=== PATIENT | female | born 1995 | race Caucasian/White ===

== ENCOUNTER 2018-07-23 03:01 | Emergency (ER) | payer BC ==
[2018-07-23 03:08] VITALS: RESP 18; TEMP 98.4
[2018-07-23 03:36] LABS: Basophils % (A) 0 %; Eosinophils # (A) 0.1 k/uL (0-0.7); Eosinophils % (A) 1 %; Lymphocytes # (A) 1.5 k/uL (1.0-4.8); Lymphocytes % (A) 22 %; MCH 31.6 pg (25.0-35.0); MCHC 34.2 g/dL (31.0-37.0); MCV 92.6 fL (80.0-100.0); Mean Platelet Volume 7.8; Monocytes # (A) 0.3 k/uL (0-1.0); Monocytes % (A) 5 %; Neutrophils # (A) 4.7 k/uL (1.3-7.7); Neutrophils % (A) 69 %; Platelet Count 149 k/uL (150-450); RDW 12.5 % (11.5-15.5); WBC 6.9 k/uL (3.8-10.6)
[2018-07-23] MEDS ORDERED: MORPHINE SULFATE 4 MG/ML SYRINGE IVP STA (03:38)
[2018-07-23 03:45] LABS: ALT 25 U/L (9-52); AST 16 U/L (14-36); Albumin 4.4 g/dL (3.5-5.0); Alkaline Phosphatase 30 U/L (38-126); Anion Gap 8 mmol/L; Blood Urea Nitrogen 13 mg/dL (7-17); Calcium 9.1 mg/dL (8.4-10.2); Carbon Dioxide 24 mmol/L (22-30); Chloride 106 mmol/L (98-107); Glucose 106 mg/dL (74-99); Sodium 138 mmol/L (137-145); Total Bilirubin 0.4 mg/dL (0.2-1.3); Total Protein 7.5 g/dL (6.3-8.2)
[2018-07-23] MEDS ORDERED: ONDANSETRON 4 MG/2 ML VIAL IVP STA (03:50)
--- NOTE | 2018-07-23 03:50 | ED ---
General Adult HPI - General Chief complaint: Vaginal Bleeding Stated complaint: 11 weeks preg/issues Time Seen by Provider: 07/23/18 03:19 Source: patient Mode of arrival: ambulatory Limitations: no limitations - History of Present Illness Initial comments: Ani is a female currently 11 weeks based on dates and outpatient ultrasound which revealed a single intrauterine , patient presents the emergency department today for evaluation of vaginal bleeding concern for miscarriage. Patient reports she began having some dark spotting on Sunday, she contacted her OB about this but was told that there was nothing to be done aside from pelvic rest. Patient reports that she continued spotting throughout the day on Sunday and by Sunday evening she had bright red bleeding. She came to the ER for evaluation of bleeding and cramping. Patient reports that upon arrival to the emergency department she went to the restroom to provide a urine sample and she passed products of conception. - Related Data Allergies Allergy/AdvReac Type Severity Reaction Status Date / Time No Known Allergies Allergy Verified 07/23/18 03:08 Review of Systems ROS Statement: Those systems with pertinent positive or pertinent negative responses have been documented in the HPI. ROS Other: All systems not noted in ROS Statement are negative. Past Medical History Past Medical History: No Reported History History of Any Multi-Drug Resistant Organisms: None Reported Additional Past Surgical History / Comment(s): Breast surgery Past Psychological History: No Psychological Hx Reported Smoking Status: Never smoker Past Alcohol Use History: None Reported Past Drug Use History: None Reported General Exam - General Exam Comments Initial Comments: GENERAL: Tearful, appears uncomfortable HENT: Normocephalic, Atraumatic. EYES: The sclera were anicteric and conjunctiva were pink and moist. Extraocular movements were intact and pupils were equal round and reactive to light. Eyelids were unremarkable. PULMONARY: Unlabored respirations. Good breath sounds bilaterally. No audible rales rhonchi or wheezing was noted. CARDIOVASCULAR: There is a regular rate and rhythm without any murmurs gallops or rubs. ABDOMEN: Soft and nontender with normal bowel sounds. SKIN: Skin is clear with no lesions or rashes and otherwise unremarkable. : NEUROLOGIC: Patient is alert and oriented x3. Cranial nerves II through XII are grossly intact. Motor and sensory are also intact. Normal speech, volume and content. Symmetrical smile. MUSCULOSKELETAL: Normal extremities with adequate strength and full range of motion. No lower extremity swelling or edema. No calf tenderness. LYMPHATICS: No significant lymphadenopathy is noted PSYCHIATRIC: Normal psychiatric evaluation. Limitations: no limitations Limitations: no limitations Course Vital Signs 07/23/18 07/23/18 03:06 04:31 Temperature 98.4 F Pulse Rate 93 78 Respiratory 18 18 Rate Blood Pressure 122/78 96/54 O2 Sat by Pulse 99 98 Oximetry Medical Decision Making - Medical Decision Making The patient was seen and evaluated, labs and imaging were ordered History and physical exam are concerning for miscarriage, patient believes she passed products of conception in the restroom, she reports that she saw tissue Morphine and Zofran were ordered Pelvic exam revealed mild dark bleeding, placenta was removed from the cervical os, tissue was removed from vaginal canal Bleeding decreased after placental tissue was removed Patient's pain resolved after removal of tissue and morphine was administered At this time I suspect the patient has had a completed Return parameters including any development of worsening pain, foul odor, fever , profuse vaginal bleeding or lightheadedness were discussed with the patient. Patient was otherwise advised to contact her OB Dr. Eric Nichols at [facility] tomorrow to discuss findings and plan for repeat beta hCG. Patient was given a printed copy of her beta hCG which was noted only be 3473. Blood type was noted to be Rh+ therefore there is no indication for Bill All questions pertaining to care were answered to the best of my ability. The patient was discharged home in stable condition. - Lab Data Result diagrams: 07/23/18 03:25 07/23/18 03:25 Lab Results 07/23/18 07/23/18 07/23/18 Range/Units 03:25 03:25 03:25 WBC 6.9 (3.8-10.6) k/uL RBC 4.10 (3.80-5.40) m/uL Hgb 13.0 (11.4-16.0) gm/dL Hct 38.0 (34.0-46.0) % MCV 92.6 (80.0-100.0) fL MCH 31.6 (25.0-35.0) pg MCHC 34.2 (31.0-37.0) g/dL RDW 12.5 (11.5-15.5) % Plt Count 149 L (150-450) k/uL Neutrophils % 69 % Lymphocytes % 22 % Monocytes % 5 % Eosinophils % 1 % Basophils % 0 % Neutrophils # 4.7 (1.3-7.7) k/uL Lymphocytes # 1.5 (1.0-4.8) k/uL Monocytes # 0.3 (0-1.0) k/uL Eosinophils # 0.1 (0-0.7) k/uL Basophils # 0.0 (0-0.2) k/uL Sodium 138 (137-145) mmol/L Potassium 4.0 (3.5-5.1) mmol/L Chloride 106 (98-107) mmol/L Carbon Dioxide 24 (22-30) mmol/L Anion Gap 8 mmol/L BUN 13 (7-17) mg/dL Creatinine 0.61 (0.52-1.04) mg/dL Est GFR (CKD-EPI)AfAm >90 (>60 ml/min/1.73 sqM) Est GFR (CKD-EPI)NonAf >90 (>60 ml/min/1.73 sqM) Glucose 106 H (74-99) mg/dL Calcium 9.1 (8.4-10.2) mg/dL Total Bilirubin 0.4 (0.2-1.3) mg/dL AST 16 (14-36) U/L ALT 25 (9-52) U/L Alkaline Phosphatase 30 L (38-126) U/L Total Protein 7.5 (6.3-8.2) g/dL Albumin 4.4 (3.5-5.0) g/dL HCG, Quant 3743.0 mIU/mL Blood Type A Positive Blood Type Recheck [facility] ONLY Disposition Clinical Impression: Miscarriage Disposition: HOME SELF-CARE Condition: Good Instructions: Miscarriage (ED) Additional Instructions: Call your OB later today and notify him of your ED visit and findings, Repeat beta hCG Return to the emergency department if he develop any worsening vaginal bleeding , pain, lightheadedness, chest pain or palpitations or any new or concerning symptoms Is patient prescribed a controlled substance at d/c from ED?: No Referrals: None,Stated [Primary Care Provider] - 1-2 days Eric Hwathorne MD [REFERRING] - 1-2 days Time of Disposition: 04:22
[2018-07-23] MEDS ORDERED: ACET/COD 300 MG/30 MG STARTER PACK 6 TAB BTL PO STA (04:22)
[2018-07-23 04:31] VITALS: BP 96/54; PULSE 78
== END 2018-07-23 04:33 | disposition home or self-care (01) ==
LOC: EC 03:01
DX: O03.9 Complete or unspecified spontaneous abortion without complication (principal); Z3A.11 11 weeks gestation of pregnancy
CPT/HCPCS: 99284; 96374; 96375; 36415; 86900; 86901; 80053; 85025; 84702; J2270; J2405

== ENCOUNTER 2021-09-23 21:34 | Inpatient (IN) | payer BC ==
[2021-09-23] MEDS ORDERED: METHYLERGONOVINE 0.2 MG/ML 1 ML AMP IM PRN (23:32)
[2021-09-23] MEDS ORDERED: LIDOCAINE 0.5% (PF) 5 MG/ML (50 ML SDV) SQ PRN (23:32)
[2021-09-23] MEDS ORDERED: TERBUTALINE 1 MG/ML VIAL SQ PRN (23:32)
[2021-09-23] MEDS ORDERED: CARBOPROST TROMETHAMINE 250 MCG/ML 1 ML AMP IM PRN (23:32)
[2021-09-23] MEDS ORDERED: AMPICILLIN 2,000 MG in SODIUM CHLORIDE 0.9% 100 ML IVPB ONE (23:32)
[2021-09-23] MEDS ORDERED: OXYTOCIN 10 UNIT/ML 1 ML VIAL IM PRN (23:32)
[2021-09-23 23:42] LABS: Basophils % (A) 0 %; Eosinophils # (A) 0.1 k/uL (0-0.7); Eosinophils % (A) 1 %; HCT 32.3 % (34.0-46.0); HGB 11.5 gm/dL (11.4-16.0); Hyperchromasia Slight; Lymphocytes # (A) 1.6 k/uL (1.0-4.8); Lymphocytes % (A) 17 %; MCH 32.2 pg (25.0-35.0); MCHC 35.5 g/dL (31.0-37.0); MCV 90.6 fL (80.0-100.0); Mean Platelet Volume 9.2; Monocytes # (A) 0.5 k/uL (0-1.0); Monocytes % (A) 5 %; Neutrophils # (A) 7.2 k/uL (1.3-7.7); Neutrophils % (A) 76 %; Platelet Count 268 k/uL (150-450); Poikilocytosis Slight; RBC 3.56 m/uL (3.80-5.40); RDW 12.9 % (11.5-15.5); WBC 9.5 k/uL (3.8-10.6)
[2021-09-23] MEDS ORDERED: LACTATED RINGERS 1,000 ML IV SCH (23:45)
--- NOTE | 2021-09-24 00:07 | P.HPOB ---
History of Present Illness H&P Date: 09/23/21 Chief Complaint: Contractions. This patient is a pleasant 25-year-old 3 para 1 female estimated date of confinement 10/03/2021 estimated gestational age 38-4/7 weeks who presents to labor and delivery with complaints of contractions. Patient was 3 cm dilated and office and this evening was initially 3 simmers dilated and however recheck shows a be 4-5 cm active labor. care is per Dr. Pack. She did have an ultrasound done at 35 weeks which showed bilateral hydroceles. otherwise appears uncomplicated. She does have a history of a positive group B strep with a previous but negative this . Review of Systems Genitourinary: Reports Menstruation: Reports amenorrhea Past Medical History Past Medical History: No Reported History Additional Past Medical History / Comment(s): Previous term vaginal delivery. History of Any Multi-Drug Resistant Organisms: None Reported Additional Past Surgical History / Comment(s): Bilateral breast augmentation. Past Anesthesia/Blood Transfusion Reactions: No Reported Reaction Past Psychological History: No Psychological Hx Reported Smoking Status: Never smoker Past Alcohol Use History: None Reported Past Drug Use History: None Reported Medications and Allergies Home Medications Medication Instructions Recorded Confirmed Type Pnv No.95/Ferrous Fum/Folic AC 1 tab PO DAILY 09/23/21 09/23/21 History [ Multivitamin Tablet] Allergies Allergy/AdvReac Type Severity Reaction Status Date / Time No Known Allergies Allergy Verified 09/23/21 21:58 Exam Intake and Output 09/23/21 09/23/21 09/24/21 14:59 22:59 06:59 Other: Weight 68.946 kg - OBG Physical Exam Abdomen: bowel sounds normal, no diffuse tenderness, no bruit present, no guarding noted, no hepatomegaly, no splenomegaly, no mass Vulva: both: normal Vagina: normal moisture, no discharge Cervix: no lesion (Cervix is 4-580% effaced -1 station), no discharge Results blood work shows she is A positive, rubella nonimmune, hepatitis B negative, RPR is nonreactive, toxoplasmosis was negative 2. Quad screen was negative. Glucola was 114. Group B strep was negative, but does have a history of positive previous . Most recent ultrasound put estimated weight at 6 lbs. 10 oz. Result Diagrams: 09/23/21 23:30 Abnormal Lab Results - Last 24 Hours (Table) 09/23/21 Range/Units 23:30 RBC 3.56 L (3.80-5.40) m/uL Hct 32.3 L (34.0-46.0) % Assessment and Plan Assessment: This is a pleasant 25-year-old 3 para 1 female 38-5/7 weeks gestation admitted to labor and delivery and active labor. Patient is a negative group B strep with history of a positive with a previous therefore we will prophylactically treat with IV antibiotics. Incidentally patient was also known to have bilateral hydroceles of the fetus. Corrections Caseworker were alerted to this finding. Anticipate vaginal delivery. (1) 38 weeks gestation of Current Visit: Yes Status: Acute Code(s): Z3A.38 - 38 WEEKS GESTATION OF SNOMED Code(s): 48839595 (2) Normal labor Current Visit: Yes Status: Acute Code(s): O80 - ENCOUNTER FOR FULL-TERM UNCOMPLICATED DELIVERY; Z37.9 - OUTCOME OF DELIVERY, UNSPECIFIED SNOMED Code(s): 25108219
[2021-09-24] MEDS ORDERED: BUTORPHANOL 1 MG/ML 1 ML VIAL IV PRN (00:49)
--- NOTE | 2021-09-24 02:45 | P.PROBDLV ---
Vaginal Delivery Note - . Vaginal Delivery Note: Normal spontaneous vaginal delivery viable male infant Apgars 9 and 9 delivery time is 0220 hours. Please see dictated H&P for intimate details of this patient's admission. In brief summary this is a pleasant 25-year-old 3 para 1 female 38-5/7 weeks who presents to labor and delivery with complaints of contractions found to be in active labor. She is artificial rupture membranes for clear fluid at 5 cm. Patient's labor progresses on its own and she does get 1 dose of Stadol for pain control. Patient gets to complete pushes the head to the perineum. Posterior perineum is supported we have controlled delivery of 's head over the intact perineum. is right occiput anterior presentation. Mouth and nares are bulb suctioned. There is no evidence of a nuchal cord. With gentle downward traction we then have deliver the anterior and posterior shoulder and rest this infant's body. This is a vigorous viable male Apgars 9 and 9 delivery time is 0220 hours. After delivery of the the infant is laid on the mother's abdomen. After the cord is done pulsating, the cords doubly clamped and cut appears to be trivascular. Placenta is then spontaneously delivered intact. Estimated blood loss is approximately 100 mL. Inspection of the perineum shows a second-degree midline laceration. This is easily removed reapproximated with a 3-0 Vicryl usual fashion. Excellent reapproximation is noted. There is only superficial periurethral lacerations. No repairs required of these. All counts are correct 3. There are no complications. Infant and mother are stable in delivery room.
[2021-09-24] MEDS ORDERED: diphenhydrAMINE 50 MG/ML 1 ML VIAL IVP PRN (02:46)
[2021-09-24] MEDS ORDERED: diphenhydrAMINE 25 MG CAP PO PRN (02:46)
[2021-09-24] MEDS ORDERED: SENNOSIDES-DOCUSATE SODIUM 1 EACH TAB PO PRN (02:46)
[2021-09-24] MEDS ORDERED: LANOLIN CREAM 5 GM TUBE TOPICAL PRN (02:46)
[2021-09-24] MEDS ORDERED: HYDROCORTISONE 2.5% RECTAL CREAM 30 GM TUBE RECTAL PRN (02:46)
[2021-09-24] MEDS ORDERED: ACETAMINOPHEN TAB 325 MG TAB PO PRN (02:46)
[2021-09-24] MEDS ORDERED: bisacodyL 10 MG SUPP RECTAL PRN (02:46)
[2021-09-24] MEDS ORDERED: ZOLPIDEM 5 MG TAB PO PRN (02:46)
[2021-09-24] MEDS ORDERED: BENZOCAINE/MENTHOL SPRAY 1 GM/SPRAY AEROSOL TOPICAL PRN (02:46)
[2021-09-24] MEDS ORDERED: MEASLES-MUMPS-RUBELLA VACC/PF 12,500 UNIT/0.5 ML VIAL SQ ONE (02:46)
[2021-09-24] MEDS ORDERED: SIMETHICONE 80 MG CHEWABLE PO PRN (02:46)
[2021-09-24] MEDS ORDERED: OXYTOCIN 30 UNITS/500 ML NS 30 UNIT in SALINE 1 500ML.BAG IV SCH (03:00)
[2021-09-24] MEDS ORDERED: AMPICILLIN 1,000 MG in SODIUM CHLORIDE 0.9% 50 ML IVPB SCH (04:00)
[2021-09-24] MEDS: IBUPROFEN 600 MG TAB PO PRN ×2 (11:32→22:08)
[2021-09-25 03:01] VITALS: RESP 16
--- NOTE | 2021-09-25 07:41 | P.PNOBGVD ---
Subjective - Subjective Patient reports: Reports appetite normal, Reports voiding normally, Reports pain well controlled, Reports ambulating normally : doing well Objective - Latest Vital Signs Latest vital signs: Vital Signs Temp Pulse Resp BP Pulse Ox 09/25/21 00:00 98.3 F 80 16 101/65 09/24/21 20:00 98.5 F 83 16 101/65 09/24/21 16:00 98.3 F 80 18 100/64 97 09/24/21 12:00 98.4 F 82 18 106/67 97 09/24/21 08:00 98.3 F 81 18 97/59 97 Intake and Output 09/24/21 09/25/21 09/25/21 22:59 06:59 14:59 Other: # Voids 2 2 - Exam Lungs: bilateral: normal Chest: Normal S1, Normal S2 Extremities: Present: normal Abdomen: Present: normal appearance, soft Uterus: Present: normal, firm Assessment and Plan Assessment: day #1. Patient is resting without new complaints. She wishes to go home. Vital signs are stable and she is afebrile. Uterus is firm nontender and she is having normal lochia. She states that she does feel much better than she did after her first delivery already. My impression is that this is a normal course. Plan is to continue routine care discharge home later today (1) 38 weeks gestation of Current Visit: Yes Status: Acute Code(s): Z3A.38 - 38 WEEKS GESTATION OF SNOMED Code(s): 96502525 (2) Normal labor Current Visit: Yes Status: Acute Code(s): O80 - ENCOUNTER FOR FULL-TERM UNCOMPLICATED DELIVERY; Z37.9 - OUTCOME OF DELIVERY, UNSPECIFIED SNOMED Code(s): 43755039
--- NOTE | 2021-09-25 07:46 | P.DS ---
Providers Date of admission: 09/23/21 23:00 Expected date of discharge: 09/25/21 Attending physician: Mildred Pack Primary care physician: Stated None - Discharge Diagnosis(es) (1) 38 weeks gestation of Current Visit: Yes Status: Acute (2) Normal labor Current Visit: Yes Status: Acute Hospital Course: Please see dictated H&P for intimate details of this patient's admission. Brief summary this is a pleasant 25-year-old 3 para 1 female estimated gestational age 38-5/7 weeks who presents to labor and delivery with complaints of regular painful contractions found to be in active labor. Patient quickly goes on have a vaginal delivery viable male infant. Please see dictated delivery note. day #1 patient's felt be stable for discharge home follow up with Dr. Pack in 6 weeks. Procedures: Normal spontaneous vaginal delivery Patient Condition at Discharge: Good Plan - Discharge Summary New Discharge Prescriptions: New Ibuprofen [Motrin] 600 mg PO Q6HR PRN #30 tab PRN Reason: Pain No Action Pnv No.95/Ferrous Fum/Folic AC [ Multivitamin Tablet] 1 tab PO DAILY Discharge Medication List Pnv No.95/Ferrous Fum/Folic AC [ Multivitamin Tablet] 1 tab PO DAILY 09/23/21 [History] Ibuprofen [Motrin] 600 mg PO Q6HR PRN #30 tab 09/25/21 [Rx] Follow up Appointment(s)/Referral(s): Mildred Pack DO [Doctor of Osteopathic Medicine] - 1 Week Patient Instructions/Handouts: Vaginal Delivery (DC) Activity/Diet/Wound Care/Special Instructions: No intercourse or anything per vagina for 6 weeks. Please call if any fever, chills, excessive vaginal bleeding, and/or abdominal pain Discharge Disposition: HOME SELF-CARE
[2021-09-25] MEDS: IBUPROFEN 600 MG TAB PO PRN (08:30)
[2021-09-25 08:38] VITALS: BP 105/65; PULSE 74; TEMP 98.6
--- NOTE | 2021-09-26 06:53 | P.MSEPDOC ---
Presenting Problems - Arrival Data Date of Arrival on Unit: 09/23/21 Time of Arrival on Unit: 21:40 Mode of Transport: Ambulatory - Complaint OB-Reason for Admission/Chief Complaint: Possible Onset of Labor Comment: Contractions every three minutes since 6pm. Patient states they are mild but. similiar to her first labor. Medical History - Information : 3 Para: 1 Term: 0 : 0 Abortions: Spontaneous or Elective: 1 Number of Living Children: 1 - Gestational Age Gestational Age by ERROL (wks/days): 38 Weeks and 5 Days Review of Systems - Review of Systems Constitutional: No problems Breast: No problems ENT: No problems Cardiovascular: No problems Respiratory: No problems Gastrointestinal: No problems Genitourinary: No problems Musculoskeletal: No problems Neurological: No problems Skin: No problems Vital Signs - Temperature Temperature: 98.6 F Temperature Source: Oral - Pulse Right Brachial Pulse Rate: 74 Pulse Assessment Method: Automatic Cuff - Respirations Respiratory Rate: 16 Oxygen Delivery Method: Room Air - Blood Pressure Right Arm Blood Pressure: 105/65 Blood Pressure Mean: 78 Blood Pressure Source: Automatic Cuff Medical Screen Scoring - Cervical Exam Dilation (cm): 3 Effacement (%): 60 Station: -2 Membranes: Intact - Uterine Contractions Frequency From (mins): 1 Frequency To (mins): 3 Duration From (seconds): 40 Duration To (seconds): 60 Intensity: Mild Resting: Soft to palpation - Assessment - Baby A Baseline FHR: 135 Heart Rate - NICHD Category: Category I (Normal) NST: Reactive Physician Notification - Physician Notified Physician Notified Date: 09/24/21 Physician Notified Time: 23:17 Physician: Anil Joiner New Order Received: Yes - Notification Comment Comment: RN reported that patient had been having contractions every 3 minutes since. 6pm. Reactive NST, vital signs WNL, cervical exam was 3cm and 4.5cm after one hour. recheck. Dr. Joiner would like patient admitted to the floor ,an IV started, and states. he will be in shortly to break water. Patient updated on plan of care and in agreement. Patient to be moved to [address]. Maternal Triage Index - Maternal Triage Index Presenting for scheduled procedure w/no complaint: No - Stat/Priority 1 Stat Priority 1: No - Urgent/Priority 2 Urgent Priority 2: No - Prompt/Priority 3 Prompt Priority 3: Yes Criteria Met for Priority 3: Signs of active labor >34 weeks Disposition - Disposition OB Disposition: Admit Transferred to:: [address] Discharge Date: 09/25/21 Discharge Time: 10:11 I agree with the RN Medical Screening Exam: Yes Case reviewed; plan agreed upon as documented in EMR&OBIX.: Yes Diagnosis: ENCOUNTER FOR FULL-TERM UNCOMPLICATED DELIVERY
== END 2021-09-25 10:12 | disposition home or self-care (01) | DRG 807 ==
LOC: FBPOP 21:34 → 4FBP 23:00
PROVIDERS: ADMIT Obstetrics & Gynecology; ATTEND Obstetrics & Gynecology
PROC: 10E0XZZ Delivery of Products of Conception, External Approach (ICD-10-PCS; principal; 2021-09-24)
PROC: 0KQM0ZZ Repair Perineum Muscle, Open Approach (ICD-10-PCS; 2021-09-24)
PROC: 0UQMXZZ Repair Vulva, External Approach (ICD-10-PCS; 2021-09-24)
PROC: 10907ZC Drainage of Amniotic Fluid, Therapeutic from Products of Conception, Via Natural or Artificial Opening (ICD-10-PCS; 2021-09-24)
DX: O35.8XX0 Maternal care for other (suspected) fetal abnormality and damage, not applicable or unspecified (principal); Z37.0 Single live birth; O70.1 Second degree perineal laceration during delivery; O71.82 Other specified trauma to perineum and vulva; Z3A.38 38 weeks gestation of pregnancy; Z87.59 Personal history of other complications of pregnancy, childbirth and the puerperium
CPT/HCPCS: 59025; 85025; 86850; 86900; 86901; 90707; 99213

== ENCOUNTER → 2023-04-19 | Outpatient (CLI) | payer BC ==
--- NOTE | 2023-04-19 11:27 | USB ---
Reason for Exam: Clinical finding. Technique: Method: Targeted. Patient Position: Supine. Findings: The upper section of the breast of the left breast was scanned. Targeted ultrasound superior aspect of the left breast at the patient's palpable site. Scanning was performed from the 10:00 to 2:00 position including the subareolar region. Underlying breast implant is noted. Very dense breast tissue. At the 12:00 palpable site, there is focal fibrocystic change measuring 3.6 x 2.5 x 1.1 cm. No suspicious solid or cystic lesion is otherwise seen. A precautionary 6 month follow-up can reassess. Overall Assessment: Probably benign, BI-RAD 3 Management: Diagnostic Breast Ultrasound of the left breast in 6 months. A clinical breast exam by your physician is recommended on an annual basis and results should be correlated with mammographic findings. This exam should not preclude additional follow-up of suspicious palpable abnormalities. Results were given to the patient verbally at the time of exam. Electronically signed and approved by: Nica Schulte M.D. Radiologist
== END | disposition home or self-care (01) ==
LOC: RADUSWWP 10:27
PROVIDERS: ATTEND Surgery
DX: N63.20 Unspecified lump in the left breast, unspecified quadrant (principal)

== ENCOUNTER → 2023-04-19 | Outpatient (CLI) | payer BC ==
--- NOTE | 2023-04-19 10:25 | P.GSHP ---
History of Present Illness H&P Date: 04/19/23 Chief Complaint: Lump left breast Ani is a 27 -year-old female seen in consultation for Dr. Pack regarding a nodule in her left breast. She states she noted at approximately 2 months ago. It is located in the upper outer quadrant area. It is about 3 cm in size, it has not changed in size. It is painful if touched. She has not had anything like this in the past. She is not complaining of any nipple discharge or skin changes. She does not believe that it fluctuates with her menstrual cycle. She is not complaining of any trauma or infection in the breast. Breast fed both of her children, she stopped approximately 6 months ago but occasionally will get milky discharge if her breast are manipulated. She underwent bilateral textured silicone implants above the muscle in 2017. She has not had any other surgery on her breast. Caffeine: 1-2 cups/day nicotine: none chocolate: occasional BCP: used them for 10 years in the past, stopped 2018 Family History: maternal grandmother: breast cancer at 30 paternal aunt: breast cancer 50 paternal grandmother: breast cancer at 72, anal cancer paternal grandfather: colon cancer, lung cancer Hormonal History: menarche: 12 M1, age at first : 23, breast fed: yes periods regular, on her period now hormones:none Surgical History: breast augmentation 2017, implants, above the muscle, silicone gel Medical History: none Social History: nicotine: none alcohol: monthly a drink drugs:none - Constitutional Constitutional: Denies chills, Denies fever - EENT Eyes: denies blurred vision, denies pain Ears: deny: decreased hearing, tinnitus Ears, nose, mouth and throat: Denies headache, Denies sore throat - Breasts Breasts: bilateral: as per HPI - Cardiovascular Cardiovascular: Denies chest pain, Denies shortness of breath - Respiratory Respiratory: Denies cough, Denies 7 - Gastrointestinal Gastrointestinal: Denies abdominal pain, Denies diarrhea, Denies nausea, Denies vomiting - Genitourinary (Female) Genitourinary: Denies dysuria, Denies hematuria - Menstruation Menstruation: Reports period normal - Musculoskeletal Musculoskeletal: Denies myalgias - Integumentary Integumentary: Denies pruritus, Denies rash - Neurological Neurological: Denies numbness, Denies weakness - Psychiatric Psychiatric: Denies anxiety, Denies depression - Endocrine Endocrine: Denies fatigue, Denies weight change - Hematologic/Lymphatic Comment: none - Allergic/Immunologic Allergic/Immunologic: Reports as per HPI Past Medical History Past Medical History: No Reported History Additional Past Medical History / Comment(s): Previous term vaginal delivery. History of Any Multi-Drug Resistant Organisms: None Reported Additional Past Surgical History / Comment(s): Bilateral breast augmentation. Past Anesthesia/Blood Transfusion Reactions: No Reported Reaction Past Psychological History: No Psychological Hx Reported Smoking Status: Never smoker Past Alcohol Use History: None Reported Past Drug Use History: None Reported - Past Family History Mother Family Medical History: No Reported History Medications and Allergies Home Medications Medication Instructions Recorded Confirmed Type Pnv No.95/Ferrous Fum/Folic AC 1 tab PO DAILY 09/23/21 09/23/21 History [ Multivitamin Tablet] Ibuprofen [Motrin] 600 mg PO Q6HR PRN #30 tab 09/25/21 Rx Allergies Allergy/AdvReac Type Severity Reaction Status Date / Time No Known Allergies Allergy Verified 09/23/21 21:58 Surgical - Exam - General no distress - Eyes normal ocular movement - ENT no hearing loss - Neck trachea midline - Respiratory normal respiratory effort - Cardiovascular Rhythm: regular Heart Sounds: normal: S1, S2 - Abdomen Abdomen: soft - Integumentary normal turgor - Neurologic no disoriented, no combative - Musculoskeletal normal gait, normal posture - Psychiatric oriented to time, oriented to person, oriented to place, speech is normal, memory intact Breast Exam: BRA: 32C inspection: Bilateral breast implants Palpation: right breasts: Multiple positional exam no dominant masses or nodules of concern implant in place, dominant masses or nodules of concern Right axilla: No adenopathy of concern Left breast: Multiple positional exam in the upper outer quadrant area over the implant there is approximately a 2 cm area of nodularity most likely consistent with a cyst that appears to be smooth-walled Her dominant masses or nodules of concern, implant is in place Left axilla: No adenopathy of concern Assessment and Plan Assessment: Impression: Nodule left breast Fibrocystic breast changes Bilateral prepectoral textured silicone implants placed in 2017 Strong family history of breast cancer. We will get a Aleyda risk evaluation when patient has mammograms done we have discussed genetic testing Plan: Ultrasound left breast area of nodularity Close surveillance secondary to implants in place Bilateral mammogram Bilateral breast ultrasound CC: Dr. Pack
== END ==
LOC: WWCWWP 10:04
PROVIDERS: ATTEND Surgery
DX: N60.12 Diffuse cystic mastopathy of left breast (principal); Z80.3 Family history of malignant neoplasm of breast; Z80.1 Family history of malignant neoplasm of trachea, bronchus and lung

== ENCOUNTER → 2023-10-19 | Outpatient (CLI) | payer BC ==
--- NOTE | 2023-10-19 16:19 | USB ---
Reason for Exam: Follow-up at short interval from prior study. Technique: Method: Whole Breast Handheld. Findings: The whole breast of both breasts, the axilla of both breasts and the retroareolar of both breasts were scanned. A complete US of all four quadrants of the the bilateral breasts, axilla, and retro-areolar region were reviewed. Underlying bilateral breast implants. Dense tissue is present throughout on both sides. On the left, 12:00 position, redemonstrated clumped up tissue with multiple cysts. The region measures 3.7 x 3.5 x 1.2 cm. This is in comparison to 3.6 x 2.5 x 1.1 cm 6 months ago. Overall not significantly changed. An annual follow-up can be performed given focality. Overall Assessment: Probably benign, BI-RAD 3 Management: Diagnostic Breast Ultrasound of the left breast in 1 year. Focal clumped up tissue with prominent cystic change at the 12:00 position left breast remains relatively unchanged for 6 months. Probable focal area of proliferative fibrocystic change. A breast hamartoma is also a consideration. Consider ultrasound follow-up in 12 months. If any enlargement is noted, the area can be rescanned sooner. Surgical excision can be considered if symptomatic. Results were given to the patient verbally at the time of exam. Electronically signed and approved by: Nica Schulte M.D. Radiologist
--- NOTE | 2023-11-01 11:11 | MM ---
Reason for Exam: Follow-up at short interval from prior study. Patient History: Menarche at age 12. First Full-Term at age 23. Patient has history of breast feeding. 11/2016, Bilateral Implants. Maternal grandmother had breast cancer, age 30. Paternal grandmother had breast cancer at or over age 50. Paternal aunt had breast cancer at or over age 50. Tissue Density: The breast tissue is extremely dense which could obscure a lesion on mammography. Findings: Bilateral breast prostheses are present. There is some fullness in the upper outer anterior left breast anterior to the breast prosthesis. This may correlate with the ultrasound findings. There are some punctate calcifications posterior to the right nipple 1.6 cm from the nipple. Magnification views were obtained. A suspicious cluster of calcifications on magnification are not identified. On the medial lateral view couple of punctate calcifications are identified with some additional regional punctate calcifications. No suspicious group of calcifications present. Short-term follow-up for evaluation of stability is recommended. There are scattered benign punctate calcifications within the left breast. Patient is currently scheduled for a biopsy of the left breast ultrasound findings. Overall Assessment: Probably benign, BI-RAD 3 Management: Diagnostic Mammogram of the right breast in 6 months. A negative mammogram report should not preclude additional follow up of suspicious palpable abnormalities. Patient should continue monthly self breast exam. A clinical breast exam by your physician is recommended on an annual basis and results should be correlated with mammographic findings. Electronically signed and approved by: Bhupinder Orellana D.O. Radiologis
== END | disposition home or self-care (01) ==
LOC: RADMAMWWP 14:31
PROVIDERS: ATTEND Surgery
DX: R92.343 Mammographic extreme density, bilateral breasts (principal); R92.1 Mammographic calcification found on diagnostic imaging of breast; N60.01 Solitary cyst of right breast; N60.02 Solitary cyst of left breast; Z80.3 Family history of malignant neoplasm of breast; Z98.82 Breast implant status
CPT/HCPCS: 77062; 77066

== ENCOUNTER → 2023-11-01 | Outpatient (CLI) | payer BC ==
[2023-11-01 09:05] VITALS: BP 96/62; PULSE 70; RESP 18; TEMP 98.4
--- NOTE | 2023-11-01 09:45 | P.PN ---
Subjective Progress Note Date: 11/01/23 History of Present Illness H&P Date: 04/19/23 Chief Complaint: Lump left breast Ani is a 27 -year-old female seen in consultation for Dr. Pack on 04-19-23 regarding a nodule in her left breast. She had noted it approximately 2 months prior. It was located in the upper outer quadrant area. It was about 3 cm in size, it had not changed in size. It was painful if touched. She had not had anything like this in the past. She was not complaining of any nipple discharge or skin changes. She did believe that it fluctuated with her menstrual cycle. She was not complaining of any trauma or infection in the breast. Breast fed both of her children, she stopped approximately 6 months prior but occasionally would get milky discharge if her breast were manipulated. She underwent bilateral textured silicone implants above the muscle in 2016. She had not had any other surgery on her breast. The patient had an ultrasound performed on 770 223 and no discrete masses were noted. Repeat ultrasound in 6 months was recommended. Repeat ultrasound bilateral of the breast was performed on 1220 223. This revealed in the left breast clump of tissue with multiple cysts. The lesion measured 2.7 x 3.5 cm. This was not felt to be significantly changed. No lesions of concern were identified in the right breast. This was considered BIRADS 3. Diagnostic breast ultrasound of the left breast in 1 year was recommended. The patient states that the area of concern in the left breast may have increased slightly in size. It is tender to palpation. Ultrasound done on 10-19-23 noted in the left breast probable focal area of proliferative fibrocystic change. Hematoma was also considered. This was focal clump of tissue with prominent cystic change at 12:00. Caffeine: 1-2 cups/day nicotine: none chocolate: occasional BCP: used them for 10 years in the past, stopped 2018 Family History: maternal grandmother: breast cancer at 30 paternal aunt: breast cancer 50 paternal grandmother: breast cancer at 72, anal cancer paternal grandfather: colon cancer, lung cancer Hormonal History: menarche: 12 M1, age at first : 23, breast fed: yes periods regular, on her period now hormones:none Surgical History: breast augmentation 2017, implants, above the muscle, silicone gel Medical History: none Social History: nicotine: none alcohol: monthly a drink drugs:none - Constitutional Constitutional: Denies chills, Denies fever - EENT Eyes: denies blurred vision, denies pain Ears: deny: decreased hearing, tinnitus Ears, nose, mouth and throat: Denies headache, Denies sore throat - Breasts Breasts: bilateral: as per HPI - Cardiovascular Cardiovascular: Denies chest pain, Denies shortness of breath - Respiratory Respiratory: Denies cough - Gastrointestinal Gastrointestinal: Denies abdominal pain, Denies diarrhea, Denies nausea, Denies vomiting - Genitourinary (Female) Genitourinary: Denies dysuria, Denies hematuria - Menstruation Menstruation: Reports period normal - Musculoskeletal Musculoskeletal: Denies myalgias - Integumentary Integumentary: Denies pruritus, Denies rash - Neurological Neurological: Denies numbness, Denies weakness - Psychiatric Psychiatric: Denies anxiety, Denies depression - Endocrine Endocrine: Denies fatigue, Denies weight change - Hematologic/Lymphatic Comment: none - Allergic/Immunologic Allergic/Immunologic: Reports as per HPI Past Medical History Past Medical History: No Reported History Additional Past Medical History / Comment(s): Previous term vaginal delivery. History of Any Multi-Drug Resistant Organisms: None Reported Additional Past Surgical History / Comment(s): Bilateral breast augmentation. Past Anesthesia/Blood Transfusion Reactions: No Reported Reaction Past Psychological History: No Psychological Hx Reported Smoking Status: Never smoker Past Alcohol Use History: None Reported Past Drug Use History: None Reported - Past Family History Mother Family Medical History: No Reported History Medications and Allergies Home Medications Medication Instructions Recorded Confirmed Type Pnv No.95/Ferrous Fum/Folic AC 1 tab PO DAILY 09/23/21 09/23/21 History [ Multivitamin Tablet] Ibuprofen [Motrin] 600 mg PO Q6HR PRN #30 tab 09/25/21 Rx Allergies Allergy/AdvReac Type Severity Reaction Status Date / Time No Known Allergies Allergy Verified 09/23/21 21:58 Objective - Vital Signs Vital signs: Vital Signs Temp 98.4 F 11/01/23 08:52 Pulse 70 11/01/23 08:52 Resp 18 11/01/23 08:52 BP 96/62 11/01/23 08:52 Pulse Ox 99 11/01/23 08:52 FiO2 Intake & Output 10/31/23 11/01/23 11/01/23 18:59 06:59 18:59 Weight 55.792 kg - Constitutional General appearance: Present: cooperative - EENT Eyes: Present: EOMI ENT: Present: hearing grossly normal - Neck Neck: Present: normal ROM - Respiratory Respiratory: bilateral: CTA - Cardiovascular Heart sounds: normal: S1, S2 - Gastrointestinal General gastrointestinal: Present: soft - Integumentary Integumentary: Present: normal turgor - Musculoskeletal Musculoskeletal: Present: gait normal - Psychiatric Psychiatric: Present: A&O x's 3, appropriate affect, intact judgment & insight - Additional findings Additional findings: Breast Exam: BRA: 32C inspection: Bilateral breast implants Palpation: right breasts: Multi positional exam no dominant masses or nodules of concern implant in place, no dominant masses or nodules of concern Right axilla: No adenopathy of concern Left breast: Multiple positional exam in the upper outer quadrant area over the implant there is approximately a 2 cm area of nodularity which seems to be more prominent than on her last exam. This is in the 12 o'clock position. No other dominant masses or nodules of concern Left axilla: No adenopathy of concern Assessment and Plan Assessment: Impression: Nodule left breast Fibrocystic breast changes Bilateral prepectoral textured silicone implants placed in 2017 Strong family history of breast cancer. We will get a Aleyda risk evaluation when patient has mammograms done we have discussed genetic testing Plan: Ultrasound core biopsy of the left breast area of nodularity/ reviewed with DR. Phillips and cayetano this vould be done Close surveillance secondary to implants in place Most likely recommend excision in the operating room of the area of nodularity in the left breast as this is symptomatic, it has gotten larger, but we will await biopsy results genetic testing follow up after ultrasound core biopsy left breast and genetic testing mammogram form 10-19-[address] Phillips, on preliminary exam no distinct lesion awaiting final report CC: Dr. Pack
--- NOTE | 2023-11-01 12:26 | MM ---
Reason for Exam: Additional evaluation requested from abnormal screening. Last screening mammogram was performed less than 1 month ago. Patient History: Menarche at age 12. First Full-Term at age 23. Patient has history of breast feeding. 11/2016, Bilateral Implants. Maternal grandmother had breast cancer, age 30. Paternal grandmother had breast cancer at or over age 50. Paternal aunt had breast cancer at or over age 50. Prior Study Comparison: 04/19/2023 Left US breast limited LT, [facility]. 10/19/2023 Bilateral US breast BILAT, [facility]. Tissue Density: Right: The breast tissue is extremely dense which could obscure a lesion on mammography. Findings: Analyzed By CAD. This exam is performed as follow-up diagnostic imaging of the 10/19/2023 diagnostic images. Additional magnification views and mediolateral compression right breast dictation is included in the previous diagnostic dictation. Patient is currently scheduled for left breast biopsy. Overall Assessment: Probably benign, BI-RAD 3 Management: Diagnostic Mammogram of the right breast in 6 months. A negative mammogram report should not preclude additional follow up of suspicious palpable abnormalities. Patient should continue monthly self breast exam. A clinical breast exam by your physician is recommended on an annual basis and results should be correlated with mammographic findings. Electronically signed and approved by: Bhupinder Orellana D.O. Radiologis
== END ==
LOC: WWCWWP 08:42
PROVIDERS: ATTEND Surgery
DX: N60.12 Diffuse cystic mastopathy of left breast (principal); N63.20 Unspecified lump in the left breast, unspecified quadrant; Z80.3 Family history of malignant neoplasm of breast; Z98.82 Breast implant status

== ENCOUNTER → 2023-11-16 | Day surgery (SDC) | payer BC ==
--- NOTE | 2023-11-21 12:38 | MM ---
Reason for Exam: Post Procedure Mammogram. Last screening mammogram was performed less than 1 month ago. Patient History: Menarche at age 12. First Full-Term at age 23. Patient has history of breast feeding. 11/2016, Bilateral Implants. Maternal grandmother had breast cancer, age 30. Paternal grandmother had breast cancer at or over age 50. Paternal aunt had breast cancer at or over age 50. Prior Study Comparison: 10/19/2023 Bilateral MG 3D diag mammo imp w/cad [place], [facility]. 11/01/2023 Right MG 3D follow up no charge RT, [facility]. Tissue Density: Left: The breast tissue is extremely dense which could obscure a lesion on mammography. Pathology Description: Location: 12 o'clock. Marker Left Behind. Needle Type: Mammotome Cores: 9 Gauge: 13 The procedure of ultrasound guided core biopsy was explained to the patient. Benefits, alternatives, and risks were discussed. An informed consent was then obtained. The focal oval mixed area at the 12:00 position measuring up to 3.7 cm is identified and targeted for biopsy. Underlying breast implant is noted as well. The patient was placed in supine positioning for imaging and for the procedure. The overlying skin was prepped and draped in usual sterile fashion. Lidocaine was used as anesthetic into the skin and subcutaneous tissue up to area of concern in the left breast. Under ultrasound guidance, a 13-gauge vacuum-assisted mammotome Elite biopsy gun device was used to obtain 7 core samples. 2 of the samples were taken at the margin of the lesion in the event that any capsule is present. Following this, a Hydromark butterfly clip was left in lesion. The patient tolerated the procedure well without any immediate complication. The patient was kept in the radiology department for short stay after the procedure and then discharged home in stable condition. Postprocedure mammogram: The patient was transferred to mammography for physician ordered post procedure mammogram for clip placement verification. Postprocedure mammogram shows clip at the area of density. Underlying breast implant remains intact. IMPRESSION: Successful, uncomplicated ultrasound guided core biopsy of a palpable area 12:00 left breast. A benign etiology is suspected. Consider etiologies such as hamartoma and PASH. A couple samples were taken at the lesion margin in the event that a capsule is present. Full pathology results to follow. Pathology Results: Result: Benign, Fibrocystic change. LEFT BREAST, 12:00, ULTRASOUND GUIDED CORE BIOPSY: Proliferative fibrocystic change with fragmented benign ductal cyst, apocrine metaplasia, usual ductal hyperplasia and acute and chronic mastitis. Overall Assessment: Benign Assessment: MG diagnostic mammo LT wo CAD. - Left: Benign, BI-RAD 2. Management: Diagnostic Breast Ultrasound of the left breast in 6 months. If any enlargement is noted or if symptomatic, given focality, excision can be considered. Otherwise, screening mammogram at 38 years. Electronically signed and approved by: Nica Schulte M.D. Radiologist
== END ==
LOC: RADUSWWP 10:16
PROVIDERS: ATTEND Surgery
DX: N61.0 Mastitis without abscess (principal); N60.82 Other benign mammary dysplasias of left breast; R92.8 Other abnormal and inconclusive findings on diagnostic imaging of breast; Z80.3 Family history of malignant neoplasm of breast
CPT/HCPCS: 88305; 77065; 19083; A4648

== ENCOUNTER → 2023-11-23 | Outpatient (CLI) | payer BC ==
[2023-11-23 11:47] VITALS: BP 113/68; PULSE 68; RESP 17; TEMP 97.9
--- NOTE | 2023-11-23 12:05 | P.PN ---
Subjective Progress Note Date: 11/23/23 Principal diagnosis: fibrocystic breast disease Subjective Progress Note Date: 10-23-24 Chief Complaint: Lump left breast Ani is a 27 -year-old female seen in consultation for Dr. Pack on 04-19-23 regarding a nodule in her left breast. She had noted it approximately 2 months prior. It was located in the upper outer quadrant area. It was about 3 cm in size, it had not changed in size. It was painful if touched. She had not had anything like this in the past. She was not complaining of any nipple discharge or skin changes. She did believe that it fluctuated with her menstrual cycle. She was not complaining of any trauma or infection in the breast. Breast fed both of her children, she stopped approximately 6 months prior but occasionally would get milky discharge if her breast were manipulated. She underwent bilateral textured silicone implants above the muscle in 2016. She had not had any other surgery on her breast. The patient had an ultrasound performed on and no discrete masses were noted. Repeat ultrasound in 6 months was recommended. Repeat ultrasound bilateral of the breast was performed on 12211201. This revealed in the left breast clump of tissue with multiple cysts. The lesion measured 2.7 x 3.5 cm. This was not felt to be significantly changed. No lesions of concern were identified in the right breast. This was considered BIRADS 3. Diagnostic breast ultrasound of the left breast in 1 year was recommended. The patient states that the area of concern in the left breast may have increased slightly in size. It is tender to palpation. Ultrasound done on 10-19-23 noted in the left breast probable focal area of proliferative fibrocystic change. Hematoma was also considered. This was focal clump of tissue with prominent cystic change at 12:00. left breast biopsy on 11-16-23 fibrocystic change Mammogram from 10-19-[address] Phillips. Additional views of right breast done on 11-01-22; no new lesions in the left breast. BIRAD 3 repeat right breast mammogram in 6 months. Patient aware. She is having a left breast core biopsy and follow up after that, and then follow up fright breast in 6 months. Aleyda Risk does not start until 33, so not done. Caffeine: 1-2 cups/day nicotine: none chocolate: occasional BCP: used them for 10 years in the past, stopped 2019 Family History: maternal grandmother: breast cancer at 30 paternal aunt: breast cancer 50 paternal grandmother: breast cancer at 72, anal cancer paternal grandfather: colon cancer, lung cancer Hormonal History: menarche: 12 M1, age at first : 23, breast fed: yes periods regular, on her period now hormones:none Surgical History: breast augmentation 2017, implants, above the muscle, silicone gel Medical History: none Social History: nicotine: none alcohol: monthly a drink drugs:none - Constitutional Constitutional: Denies chills, Denies fever - EENT Eyes: denies blurred vision, denies pain Ears: deny: decreased hearing, tinnitus Ears, nose, mouth and throat: Denies headache, Denies sore throat - Breasts Breasts: bilateral: as per HPI - Cardiovascular Cardiovascular: Denies chest pain, Denies shortness of breath - Respiratory Respiratory: Denies cough - Gastrointestinal Gastrointestinal: Denies abdominal pain, Denies diarrhea, Denies nausea, Denies vomiting - Genitourinary (Female) Genitourinary: Denies dysuria, Denies hematuria - Menstruation Menstruation: Reports period normal - Musculoskeletal Musculoskeletal: Denies myalgias - Integumentary Integumentary: Denies pruritus, Denies rash - Neurological Neurological: Denies numbness, Denies weakness - Psychiatric Psychiatric: Denies anxiety, Denies depression - Endocrine Endocrine: Denies fatigue, Denies weight change - Hematologic/Lymphatic Comment: none - Allergic/Immunologic Allergic/Immunologic: Reports as per HPI Past Medical History Past Medical History: No Reported History Additional Past Medical History / Comment(s): Previous term vaginal delivery. History of Any Multi-Drug Resistant Organisms: None Reported Additional Past Surgical History / Comment(s): Bilateral breast augmentation. Past Anesthesia/Blood Transfusion Reactions: No Reported Reaction Past Psychological History: No Psychological Hx Reported Smoking Status: Never smoker Past Alcohol Use History: None Reported Past Drug Use History: None Reported - Past Family History Mother Family Medical History: No Reported History Medications and Allergies Home Medications Medication Instructions Recorded Confirmed Type Pnv No.95/Ferrous Fum/Folic AC 1 tab PO DAILY 09/23/21 09/23/21 History [ Multivitamin Tablet] Ibuprofen [Motrin] 600 mg PO Q6HR PRN #30 tab 09/25/21 Rx Allergies Allergy/AdvReac Type Severity Reaction Status Date / Time No Known Allergies Allergy Verified 09/23/21 21:58 Objective - Vital Signs Vital signs: Vital Signs Temp 97.9 F 11/23/23 11:42 Pulse 68 11/23/23 11:42 Resp 17 11/23/23 11:42 BP 113/68 11/23/23 11:42 Pulse Ox 97 11/23/23 11:42 FiO2 Intake & Output 11/22/23 11/23/23 11/23/23 18:59 06:59 18:59 Weight 56.245 kg - Constitutional General appearance: Present: cooperative - EENT Eyes: Present: EOMI ENT: Present: hearing grossly normal - Neck Neck: Present: normal ROM - Respiratory Respiratory: bilateral: CTA - Cardiovascular Heart sounds: normal: S1, S2 - Integumentary Integumentary: Present: normal turgor - Musculoskeletal Musculoskeletal: Present: gait normal - Psychiatric Psychiatric: Present: A&O x's 3, appropriate affect, intact judgment & insight - Additional findings Additional findings: Breast Exam: BRA: 32C inspection: Bilateral breast implants Palpation: Left breast: exam in the upper outer quadrant area over the implant there is approximately a 2 cm area of nodularity which seems to be more prominent than on her last exam. This is in the 12 o'clock position. No other dominant masses or nodules of concern in ultrasound core biopsy of this area was performed which was benign concordant fibrocystic change; most this at the site of the biopsy no evidence of hematoma or infection Assessment and Plan Assessment: Impression: Nodule left breast/performed benign concordant Fibrocystic breast changes Bilateral prepectoral textured silicone implants placed in 2017 Strong family history of breast cancer. We will get a Aleyda risk evaluation when patient has mammograms done/ cannot be done until 33 we have discussed genetic testing Biopsy area of concern benign concordant Plan: Close surveillance secondary to implants in place; follow-up 3 months Most likely recommend excision in the operating room of the area of nodularity in the left breast as this is symptomatic, it has gotten larger, but we will await biopsy results; states that at this time the area is not symptomatic in would like to wait and be followed conservatively genetic testing has been sent in and we are waiting for the results Repeat left breast ultrasound in 6 months with examination at that time CC: Dr. Pack
== END ==
LOC: WWCWWP 11:13
PROVIDERS: ATTEND Surgery
DX: N60.12 Diffuse cystic mastopathy of left breast (principal); N63.20 Unspecified lump in the left breast, unspecified quadrant; Z80.3 Family history of malignant neoplasm of breast; Z98.82 Breast implant status